=== PATIENT | male | born 1930 ===

== ENCOUNTER 2019-06-14 08:49 | Outpatient (CLI) | payer OTHER ==
[~2019-06-14] VITALS: Ht 172.7 cm; Wt 81.6 kg
== END 2019-06-14 09:05 | disposition home or self-care (01) ==
LOC: OFIC 805 08:49
DX: H90.3 Sensorineural hearing loss, bilateral (principal); H61.23 Impacted cerumen, bilateral

== ENCOUNTER → 2020-08-03 | Emergency (ER) | payer OTHER ==
[~2020-08-03] VITALS: Ht 167.6 cm; Wt 77.1 kg
== END | disposition designated cancer center or children's hospital (05) ==
LOC: ER 21:48 → CPU-OBS 22:34
DX: I63.89 Other cerebral infarction (principal); I60.8 Other nontraumatic subarachnoid hemorrhage; R47.89 Other speech disturbances; I10 Essential (primary) hypertension; R06.02 Shortness of breath; G30.8 Other Alzheimer's disease; F02.80 Dementia in other diseases classified elsewhere, unspecified severity, without behavioral disturbance, psychotic disturbance, mood disturbance, and anxiety; Z03.818 Encounter for observation for suspected exposure to other biological agents ruled out